=== PATIENT | female | born 1980 | race Asian ===

== ENCOUNTER 2023-12-01 07:50 | Emergency (ER) | payer OTHER ==
[~2023-12-01] VITALS: Ht 165.1 cm; Wt 104.8 kg
[2023-12-01 07:57] VITALS: BP_SYST 154; PULSE 100; RESP 18; TEMP 97.6; O2SAT 96
== END 2023-12-01 08:41 | disposition home or self-care (01) ==
LOC: SED 07:50
DX: S71.102D Unspecified open wound, left thigh, subsequent encounter (principal); X58.XXXD Exposure to other specified factors, subsequent encounter
CPT/HCPCS: 99281; J7030